=== PATIENT | female | born 1975 ===

== ENCOUNTER 2025-10-17 07:30 | Outpatient (AMB) | payer OTHER, MEDICARE, MEDICAID, SELFPAY ==
[2025-10-17 07:35] VITALS: BMI 25.2
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
== END 2025-10-17 08:08 | disposition home or self-care (01) ==
LOC: HO.HPHYS 07:31
PROVIDERS: PCP Internal Medicine; Visit Provider Physical Medicine & Rehabilitation
DX: M75.42 Impingement syndrome of left shoulder (principal); M54.2 Cervicalgia; M54.12 Radiculopathy, cervical region; V89.2XXA Person injured in unspecified motor-vehicle accident, traffic, initial encounter; M62.838 Other muscle spasm
CPT/HCPCS: 99204; G2211

== ENCOUNTER 2025-10-29 11:00 | Outpatient (REF) | payer OTHER, MEDICARE, MEDICAID, SELFPAY ==
--- OUTSIDE RECORDS SUMMARY | 2025-10-24 23:59 | XMS_ITS | Continuity of Care Document ---
Author Organization [facility] Address [address] [place] [address]- Support Name Relationship Address Phone DEAN MUÑOZ Personal Relationship Unknown Unavai labTIMMY Hensley Personal Relationship Unknown Unavai labdennis GAMBLE, TIMMY Personal Relationship Unknown Unavai labdennis GAMBLE, TIMMY Personal Relationship Unknown UnavaDANIELLE Campbell Personal Relationship Unknown Unavai labdennis GAMBLE, TIMMY Personal Relationship Unknown UnavaDANIELLE Campbell Personal Relationship Unknown Unavai labdennis STOCK, JACQUI Other Unknown Unavailable MAVIS, TIMMY Personal Relationship Unknown Unavai labdennis GAMBLE, TIMMY Personal Relationship Unknown Unavai labBILL HensleyIN Personal Relationship Unknown Unavai labdennis GAMBLE, TIMMY Personal Relationship Unknown Unavai lable JEREMY, LIVE unrelated friend Unknown Unav ailable MAVIS, TIMMY Personal Relationship Unknown Unavai labdennis GAMBLE, TIMMY Personal Relationship Unknown Unavai labTIMMY Hensley Personal Relationship Unknown Unava ilable MAVIS, TIMMY Personal Relationship Unknown Unavai labBILL HensleyIN former spouse Unknown Unavailable MAVIS, TIMMY Personal Relationship Unknown Unavai labdennis GAMBLE TIMMY Personal Relationship Unknown Unavai labdennis GAMBLE TIMMY Personal Relationship Unknown Unavai labdennis GAMBLE TIMMY Personal Relationship Unknown Unavai labdennis GAMBLE TIMMY Personal Relationship Unknown Unavai labdennis GAMBLE TIMMY Personal Relationship Unknown Unavai labdennis GAMBLE TIMMY Personal Relationship Unknown Unavai labdennis GAMBLE TIMMY Personal Relationship Unknown Unavai labdennis GAMBLE, TIMMY Personal Relationship Unknown Unavai lable MAVIS, DIMA child Unknown Unavailable MAVIS, TIMMY Personal Relationship Unknown Unavai labdennis GAMBLE, TIMMY Personal Relationship Unknown Unavai labdennis GAMBLE, TIMMY Personal Relationship Unknown Unavai labdennis GAMBLE TIMMY Personal Relationship Unknown Unavai labdennis GAMBLE, TIMMY Personal Relationship Unknown Unavai lable MAVIS, TIMMY Personal Relationship Unknown Unavai lable MAVIS, TIMMY Personal Relationship Unknown Unavai lable MAVIS, TIMMY M Personal Relationship Unknown Unava ilable CHOLO, DANIELLE Personal Relationship Unknown Unavai lable CHOLO, DANIELLE Personal Relationship Unknown Unavai lable MAVIS, TIMMY Personal Relationship Unknown Unavai lable MAVIS, TIMMY Personal Relationship Unknown Unavai lable MAVIS, TIMMY Personal Relationship Unknown Unavai lable MAVIS, TIMMY Personal Relationship Unknown Unavai lable MAVIS, TIMMY Personal Relationship Unknown Unavai lable MAVIS, TIMMY Personal Relationship Unknown Unavai lable MAVIS, TIMMY Personal Relationship Unknown Unavai lable MAVIS, TIMMY Personal Relationship Unknown Unavai lable MAVIS, TIMMY Personal Relationship Unknown Unavai lable MAVIS, TIMMY Personal Relationship Unknown Unavai lable MAVIS, TIMMY Personal Relationship Unknown Unavai lable MAVIS, TIMMY Personal Relationship Unknown Unavai lable MAVIS, TIMMY Personal Relationship Unknown Unavai lable MAVIS, TIMMY Personal Relationship Unknown Unavai lable MAVIS, TIMMY Personal Relationship Unknown Unavai lable MAVIS, TIMMY Personal Relationship Unknown Unavai lable CHOLO, DANIELLE Personal Relationship Unknown Unavai lable CHOLO, DANIELLE Personal Relationship Unknown Unavai lable MAVIS, TIMMY Personal Relationship Unknown Unavai lable MAVIS, TIMMY Personal Relationship Unknown Unavai lable MAVIS, TIMMY Personal Relationship Unknown Unavai lable MAVIS, TIMMY Personal Relationship Unknown Unavai lable Care Team Providers Care President [employer] Name Role Phone Satya VENTURA, Johnny Primary Care Physician Encounter [facility] Date(s): 09/24/25 - 10/24/[address] Attending Physician: Esmer Saleem Admitting Physician: Esmer Saleem Referring Physician: Esmer Saleem Encounter Type: Triage Allergies, Adverse Reactions, Alerts Substance Criticality Severity Reaction Reaction Severity Status ibuprofen Active sulfADIAZINE rash Active Medications escitalopram 20 mg oral tablet 1 tablet = 20 mg, By Mouth, Daily, # 30 tablet, 3 Refills, Maintenance, 10/10/24 4:48:00 PM EST, Tablet, [id number], Partial fill upon patient request if the prescription is for a schedule II opioid drug., 148, cm, 10/18/23 14:00:00 EST, Height, 59.5, kg, 08/01/23 14:27:00 EDT, Dry Weight Start Date: 10/10/24 Status: Ordered Medication Dispense Status: Completed Quantity: 30.0 Unit: tablet Total Allowed Fills: 4 Fills Dispensed: 0 hydrOXYzine hydrochloride 10 mg oral tablet 1 tablet = 10 mg, By Mouth, 3 times a day, PRN for anxiety, # 30 tablet, 1 Refills, Maintenance, 08/01/24 4:12:00 PM EDT, Tablet, [id number], Partial fill upon patient request if the prescription is for a schedule II opioid drug., 148, cm, 10/18/23 14:00:00 EST, Height, 59.5, kg, 08/01/23 14:27:00 EDT, Dry Weight Start Date: 08/01/24 Status: Ordered Medication Dispense Status: Completed Quantity: 30.0 Unit: tablet Total Allowed Fills: 2 Fills Dispensed: 0 meclizine 25 mg oral tablet 1 tablet = 25 mg, By Mouth, PRN for dizziness, # 30 tablet, 0 Refills, Maintenance, 05/30/24 5:09:00PM EDT, Tablet, Partial fill upon patient request if the prescription is for a schedule II opioid drug. Start Date: 05/30/24 Status: Ordered Medication Dispense Status: Completed Quantity: 30.0 Unit: tablet Total Allowed Fills: 1 Fills Dispensed: 0 ProAir HFA 90 mcg/inh inhalation aerosol with adapter 2, puffs, Inhalation, Every 4 hours, PRN, , cough or SOB, # 1 each, Refills 0, Tot. Refills 0, Maintenance, 12/22/18 4:38:35 PM EST, Aerosol, Route to Pharmacy Electronically, [id number], [facility] [id number] Start Date: 12/22/18 Stop Date: 01/21/19 Status: Ordered Medication Dispense Status: Completed Quantity: 1.0 Unit: each Total Allowed Fills: 1 Fills Dispensed: 0 Symbicort 80mcg/4.5mcg Inhaler 2, puffs, Inhalation, 2 times a day, # 10.2 Gm, Refills 0, Maintenance, 07/16/23 12:50:00 PM EDT, Aerosol Start Date: 07/16/23 Status: Ordered Medication Dispense Status: Completed Quantity: 10.2 Unit: g Total Allowed Fills: 1 Fills Dispensed: 0 Problem List Condition Confirmation Course Effective Dates Status Health [facility] Informant Post traumatic stress disorder (PTSD) Confirmed Active Major depressive disorder, recurrent Confirmed Active Social History Social History Type Response Smoking Status 10 or more cigarette s (1/2 pack or more)/day in last 30 days entered on: 04/24/25 Sex Sex Representation Female (finding) Patient Care team information Care Team Personnel Name: Sujey Pardo Position: [facility] Outreach Member Role: Lifetime Consulting Physician Name: Johnny Hernadez MD Position: [facility] Outreach Member Role: PCP Address: [address] [place] [address] Telecom: Care Team Related Persons Name: TIMMY GAMBLE Name: DIMA GAMBLE Name: JACQUI STOCK Name: LIVE LUNA Name: DEAN MUÑOZ Insurance Providers Guarantor name: DANIELLE EMMANUEL Health Plan Information #: 1 Payer: [employer]OUNT Payer Identifier: NA Member Number: NA Group Number: NA Subscriber Identifier: NA Relationship to Subscriber: self Coverage Type: MISCELLANEOUS/OTHER Coverage Verification Date: NA Telecom: NA Address:
--- NOTE | ~2025-10-29 | XR_ITS ---
EXAMINATION: XR SHOULDER, LEFT CLINICAL INFORMATION: M75.42 - Impingement syndrome of left shoulder COMPARISON: None available. TECHNIQUE: AP external rotation, Grashey, scapular Y, and axillary views of the left shoulder. FINDINGS: No fracture. Glenohumeral and acromioclavicular alignment is anatomic with normal joint space. No abnormal soft tissue calcifications. XR/XR shoulder LT min 2V IMPRESSION: No acute findings Electronically signed by: Tyrell Morillo MD 10/29/2025 02:12 PM EST
--- OUTSIDE RECORDS SUMMARY | 2025-10-29 10:00 | XMS_ITS | Encounter Summary ---
Author Organization [facility] Address [address] [place] [address] Care Team Providers Care Tape Folding Machine Operator Name Role Phone Kerry Varela MD Primary Care Provider [phone] Reason for Referral * Imaging (Routine) - Authorized Specialty Diagnoses / Procedures Referred By Shamikaac mena Referred To Contact Radiology Diagnoses Posterior tibial tendon tear, traumatic, left, sequela Procedures MR Ankle wo Contrast Left Rory Tamayo DPM [address] [address] Phone: tel: fax: [address] [address] Phone: tel: Referral ID Status Reason Start Date Expiration Date V isits Requested Visits Authorized [id number] Authorized 10/29/2025 10/29/2026 1 1 Reason for Visit * Reason Comments Ankle Pain Foot ankle pain Encounter Details Date Type Department Care Team (Late st Contact Info) Description 10/29/2025 10:00 AM EST Office Visit Orthopedic Surgery - [place] [address] [phone] Rory Tamayo DPM [address] [address] Left foot pain (Primary Dx); Posterior tibial tendon tear, traumatic, left, sequela; Lumbosacral radiculopathy; Arthritis of both feet Social History Tobacco Use Types Packs/Day Years Used Date Smoking Tobacco: Every Day Cigarettes 1 32.8 Started: 1992 Passive Smoke Exposure: Past Smokeless Tobacco: Never Alcohol Use Standard Drinks/Week Comments Yes 0 (1 standard drink = 0.6 oz pur e alcohol) Comments No Sex and Gender Information Value Date Recorded Sex Assigned at Not on file Legal Sex Female 10:47 PM EST Gender Identity Not on file Sexual Orientation Not on file documented as of this encounter Functional Status * Are you deaf or do you have serious difficulty hearing? Answer Date of Assessment Author No 03/23/2025 11:56 AM Janeth Flores RN * Are you blind or do you have serious difficulty seeing, even when wearing glasses? Answer Date of Assessment Author No 03/23/2025 11:56 AM Janeth Flores RN * Do you have serious difficulty walking or climbing stairs? Answer Date of Assessment Author No 03/23/2025 11:56 AM Janeth Flores RN * Do you have serious difficulty dressing or bathing? Answer Date of Assessment Author No 03/23/2025 11:56 AM Janeth Flores RN * Because of a physical, mental, or emotional condition, do you have serious difficulty doing errandsalone such as visiting the doctor? Answer Date of Assessment Author No 03/23/2025 11:56 AM Janeth Flores RN documented as of this encounter Mental Status * Because of a physical, mental, or emotional condition, do you have serious difficulty concentrating, remembering, or making decisions? (5 years old or older) Answer Entry Date Author No 03/23/2025 11:56 AM Janeth Flores RN documented in this encounter Ordered Prescriptions Prescription Sig Dispense Quantity Refills Last Filled Start Date End Date gabapentin (NEURONTIN) 300 mg capsule Take 1 capsule (300 mg total) by mouth 3 (three) times a day. 270 each 3 10/29/2025 documented in this encounter Progress Notes * Rory Tamayo DPM - 10/29/2025 10:00 AM EST Referring MD: No ref. provider found Last PCP visit: 09/05/2025 IDENTIFIER: Mitchell is a 49 y.o. year old female who presents for consultation. CC: Left foot pain HPI: 49-year-old female presents office with left ankle pain. Patient notes that she had an injury 1 year ago and has had pain and swelling to the medial aspect since then. Patient has tried topical analgesics with no help or resolved. Patient notes that she continues to have pain anytime she steps in the morning. Patient denies any recent back problems. Patient notes that she wore a cam boot after her original injury which felt too tight and was painful. Patient is here for evaluation treatment 10/29/2025: 49-year-old female returns office for left foot and ankle pain. Patient continues to point to the medial aspect. Patient notes that the ASO was too uncomfortable and she would not be ableto use it. Patient has she is unable to take anti-inflammatory such as NSAIDs. Patient has been using Tylenol with minimal relief. Patient notes that when she is not weightbearing she does not have pain but as soon as she puts her foot down she has severe pain. ROS: GENERAL: Pt denies nausea, fever, vomiting, chills, or shortness of breath. Pt in NAD. CARDIOLOGY: pt denies chest pain, palpitations LUNGS: pt denies shortness of breath MUSCULOSKELETAL: See HPI, otherwise no joint pain or swelling, back pain, or muscle pain. SKIN: see HPI, otherwise no lesions, rash or itching NEURO: No persistent headache, weakness or numbness The remainder of the review of systems is noncontributory PAST MEDICAL HISTORY: Problem List[1] SOCIAL HISTORY: Social History Tobacco Use Smoking status: Every Day Current packs/day: 1.00 Average packs/day: 1 pack/day for 32.8 years (32.8 ttl pk-yrs) Types: Cigarettes Start date: 1992 Passive exposure: Past Smokeless tobacco: Never Substance Use Topics Alcohol use: Yes ACTIVE MEDICATIONS: Medications Taking[2] ALLERGIES: Ibuprofen, Latex, and Sulfa (sulfonamide antibiotics) PHYSICAL EXAM: There were no vitals taken for this visit. PODIATRIC EXAMINATION: GENERAL: Patient appears well nourished, with NAD. VASCULAR: Dorsalis pedis pulses are 2/4 bilaterally and Posterior tibial pulses are 2/4 bilaterally. Capillary filling time within normal limits the digits. No pallor on elevation or rubor on dependency. Positive hair growth. No varicosities. Denies rest pain or claudication pain. NEUROLOGICAL: Sharp/dull sensation intact, protective sensation intact on [place] ORTHOPEDIC: Good muscle strength 5/5 of all flexors and extensors. Dorsi flexion of ankle ,10 degrees, plantar flexion WNL. No muscle atrophy. Continue pain along the posterior tibial tendon to the left ankle with swelling throughout the area. Continued difficulty on single heel raise. Flexible flatfoot with notable drop of the navicular on stance. DERMATOLOGICAL:.No masses or skin lesions noted. Normal skin temperature, normal skin turgor. BIOMECHANICS: STJ ROM wnl, MTJ ROM wnl, 1st MPJ ROM wnl. IMAGING: Increased angular deformity. Notable drop in the talar neck. Incongruity with Meary's angle. Spurring through the dorsum of the midtarsal joint at the talonavicular joint. No fractures or dislocation IMPRESSION: 1. Left foot pain 2. Posterior tibial tendon tear, traumatic, left, sequela 3. Lumbosacral radiculopathy 4. Arthritis of both feet PLAN: Pt was seen and examined, history reviewed. Patient with continued symptoms of arthritic pain in the pedal joints. Patient showed good understanding of etiology of arthritis. Patient is aware that conservative options include padding, over thecounter products, orthotics, and shoes. Patient aware that they are other treatments available suchas oral anti- inflammatories, injections, and steroid dose packs. Patient understands that these measures are conservative measures to help handle the osteoarthritic flares. Patient's posterior tibial tendinitis has not been resolving at all. Patient continues to have severe tenderness. Patient was sent for MRI to evaluate possible tear of the posterior tibial tendon Patient was educated that she is having some pain outside of proportion. Patient has a history of lower back disc degeneration. Patient was placed on gabapentin 300 mg 3 times a day for an evaluationof whether this would help with her pain. Patient will come back in 3 weeks for evaluation Rory Tamayo DPM [1] Patient Active Problem List Diagnosis Alcohol abuse Asthma Srinivasan's palsy Constipation Anxiety state HSV-2 seropositive IBS (irritable bowel syndrome) Esophageal reflux Lumbar degenerative disc disease Palpitations Panic disorder with agoraphobia Thrombocytosis Osteopenia Mild hyperlipidemia [2] No outpatient medications have been marked as taking for the 10/29/25 encounter (Office Visit) withRory Tamayo DPM. documented in this encounter Plan of Treatment Upcoming Encounters Date Type Department Care Team (Late st Contact Info) Description 11/19/2025 10:45 AM EST Office Visit Orthopedic Surgery - [place] [address] [phone] Rory Tamayo DPM [address] [address] Scheduled Orders Name Type Priority Associated Diagnoses Orde r Schedule MR Ankle wo Contrast Left Imaging Routine Posterior tibial tendon tear, traumatic, left, sequela Expected: 10/29/2025, Expires: 10/29/2026 documented as of this encounter Visit Diagnoses Diagnosis Left foot pain- Primary Pain in soft tissues of limb Posterior tibial tendon tear, traumatic, left, sequela Lumbosacral radiculopathy Thoracic or lumbosacral neuritis or radiculitis, unspecified Arthritis of both feet documented in this encounter Care Teams Tape Folding Machine Operator Relationship Specialty Start Date End Date Kerry Varela MD [address] [place] [address] PCP - General Internal Medicine 06/01/25 documented as of this encounter
--- OUTSIDE RECORDS SUMMARY | 2025-10-29 13:54 | XMS_ITS | Clinical Summary ---
Author Organization [facility] Prior to 04/07[facility]25 Address [address] [place] [address] Care Team Providers Care Signs Sales Representative Name Role Phone Neo Soliz MD Primary Care Provider [phone] Allergies Active Allergy Reactions Criticality Noted Date Comments Sulfa Antibiotics 07/17/2021 Medications Medication Sig Dispensed Refills Start Date End Date Status famotidine (PEPCID) 20 MG tablet Take 1 tablet (20 mg total) by mouth 2 (two) times a day. 0 Active cetirizine (ZyrTEC) 10 MG tablet Take 1 tablet (10 mg total) by mouth daily. 0 Active fluticasone (FLOVENT HFA) 44 MCG/ACT inhaler Inhale 1 puff into the lungs 2 (two) times a day. 0 Active albuterol 108 (90 Base) MCG/ACT inhaler Inhale 2 puffs into the lungs every 6 (six) hours as needed for wheezing. 0 Active Cholecalciferol (Vitamin D) 50 MCG (2000 UT) tablet Take 2,000 Units by mouth daily. 0 Active propranolol (INDERAL LA) 60 MG 24 hr capsule Take 30 mg by mouth daily. 0 Active capsaicin (ZOSTRIX) 0.025 % cream Apply topically 2 (two) times a day. 0 Active zolpidem (AMBIEN) 5 MG tablet Take 1 tablet (5 mg total) by mouth every night at bedtime as needed for sleep. 0 Active PARoxetine (PAXIL) 40 MG tablet Take 30 mg by mouth every morning. 0 Active Budesonide-Formoterol Fumarate (SYMBICORT IN) Inhale into the lungs. 0 Active Active Problems No known active problems Social History Tobacco Use Types Packs/Day Years Used Date Smoking Tobacco: Every Day Cigarettes Smokeless Tobacco: Never Alcohol Use Standard Drinks/Week Comments Yes 0 (1 standard drink = 0.6 oz pur e alcohol) Sex and Gender Information Value Date Recorded Sex Assigned at Not on file Gender Identity Not on file Sexual Orientation Not on file Job Start Date Occupation Industry Not on file Not on file Not on file Last Filed Vital Signs Vital Sign Reading Time Taken Comments Blood Pressure 115/48 01/27/2024 10:04 AM EDT Pulse 90 01/27/2024 10:04 AM EDT Temperature 36.7 C (98 F) 01/27/2024 10:04 AM EDT Respiratory Rate - - Oxygen Saturation 100% 01/27/2024 10:04 AM EDT Inhaled Oxygen Concentration - - Weight 59.9 kg (132 lb) 01/27/2024 10:04 AM EDT Height 147.3 cm (4' 10 ) 01/27/2024 10:04 AM EDT Body Mass Index 27.59 01/27/2024 10:04 AM EDT Plan of Treatment Health Maintenance Due Date Last Done Comments Hepatitis C Screening 1977 COVID-19 Vaccine (#1) 06/25/1978 Depression Screening 1989 BMI Counseling 1995 Preventative Health Evaluation 1995 Tobacco Cessation Counseling 1995 Cervical Cancer Screening (Pap Smear) 1998 Pneumococcal Vaccine (2 of 2 - PCV) 02/07/2016 02/06/2015 DTap / Tdap / Td (2 - Td or Tdap) 06/16/2022 06/16/2012 Colon Cancer Screening (Colonoscopy) 2022 Influenza Vaccine (#1) 2025 5, 09/26/2013, 11/17/2012, Additional history exists Hepatitis B Vaccines Completed 12/13/2008, 07/13/2008, 06/12/2008 RSV Ped < 20 months Aged Out No longe r eligible based on patient's age to complete this topic Care Teams Signs Sales Representative Relationship Specialty Start Date End Date Neo Soilz MD [address] [place] [address] PCP - General Internal Medicine 07/17/21
--- OUTSIDE RECORDS SUMMARY | 2025-10-29 13:54 | XMS_ITS | Encounter Summary ---
Author Organization [facility] Address [address] [place] [address] Care Team Providers Care Dry End Tester Name Role Phone Kerry Varela MD Primary Care Provider [phone] Encounter Details Date Type Department Care Team (Late st Contact Info) Description 09/06/2025 Results Follow-Up [facility] [place] [address] [place] [phone] [facility] [address] [facility] [place] [facility] Social History Tobacco Use Types Packs/Day Years [...] Janeth Flores RN documented in this encounter Plan of Treatment Upcoming Encounters Date Type Department Care Team (Late st Contact Info) Description 11/19/2025 10:45 AM EST Office Visit Orthopedic Surgery - [place] [address] [phone] Rory Tamayo DPM [address] [address] documented as of this encounter Visit Diagnoses Not on filedocumented in this encounter Care Teams Dry End Tester Relationship Specialty Start Date End Date Kerry Varela MD [address] [place] [address] PCP - General Internal Medicine 06/01/25 documented as of this encounter
--- OUTSIDE RECORDS SUMMARY | 2025-10-29 13:55 | XMS_ITS | Encounter Summary ---
Author Organization [facility] Address [address] [place] [address] Care Team Providers Care Wool Buyer Name Role Phone Kerry Varela MD Primary Care Provider [phone] Encounter Details Date Type Department Care Team ([facility] st Contact Info) Description 09/26/2025 Results Follow-Up [facility] [address] [facility] [address] [place] [phone] Aubrie Ramos MD [address] [place] [address] [place] [phone] Social History Tobacco Use Types Packs/Day Years [...] Janeth Flores RN documented in this encounter Progress Notes * Aubrie Ramos MD - 09/26/2025 4:26 PM EST [employer] message sent to the patient regarding result. See below. documented in this encounter Plan of Treatment Upcoming Encounters Date Type Department Care Team (Late st Contact Info) Description 11/19/2025 10:45 AM EST Office Visit Orthopedic Surgery - [place] [address] [phone] Rory Tamayo, DPM [address] [address] documented as of this encounter Visit Diagnoses Not on filedocumented in this encounter Care Teams Wool Buyer Relationship Specialty Start Date End Date Kerry Varela MD [address] [place] [address] PCP - General Internal Medicine 06/01/25 documented as of this encounter
--- OUTSIDE RECORDS SUMMARY | 2025-10-29 13:55 | XMS_ITS | Clinical Summary ---
Author Organization [facility] [address] [facility] Address [address] [facility] [place] [address] Phone Care Team Providers Care Accounting Instructor Name Role Phone Kerry Varela MD Primary Care Provider [phone] Allergies Active Allergy Reactions Criticality Noted Date Comments Ibuprofen Hives Medium 08/03/2023 Latex Rash 03/19/2023 Sulfa (Sulfonamide Antibiotics) Rash Low 02/07 Medications cetirizine (ZyrTEC) 10 mg tablet Take 1 tablet (10 mg total) by mouth 1 (one) time each day. 3 Active cholecalciferol (VITAMIN D-3) 50 mcg (2,000 unit) capsule Take 1 capsule (2,000 Units total) by mouth 1 (one) time each day. 4 Active escitalopram (LEXAPRO) 20 mg tablet Take 1 tablet (20 mg total) by mouth 1 (one) time each day. 4 Active meclizine (ANTIVERT) 25 mg tablet Take 1 tablet (25 mg total) by mouth. 4 Active albuterol 2.5 mg /3 mL (0.083 %) nebulizer solution Take 3 mL (2.5 mg total) by nebulization if needed. 4 Active fluticasone furoate-vilante roL (BREO ELLIPTA) 200-25 mcg/dose inhaler Inhale 1 puff by mouth 1 (one) time each day. 1 each 5 5 08/10/20 26 Active propranolol LA (INDERAL LA) 60 mg 24 hr capsule TAKE 1 CAPSULE (60 MG TOTAL) BY MOUTH DAILY DO NOT CRUSH, CHEW, OR SPIT 90 capsule 1 5 Active Additional Information Patient not taking.Reported on 09/05/2025 acetaminophen (Tylenol 8 Hour) 650 mg 8 hr tablet Take 1 tablet (650 mg total) by mouth every 8 (eight) hours if needed for mild pain. Do not crush, chew, or split. 90 tablet 5 11/07/20 25 Active gabapentin (NEURONTIN) 300 mg capsule Take 1 capsule (300 mg total) by mouth 3 (three) times a day. 270 each 3 5 10/29/20 26 Active Active Problems Problem Noted Date Diagnosed Date Mild hyperlipidemia 07/27/2025 Thrombocytosis 01/11/2025 Assessment & Plan (01/11/2025 5:06 PM EST): We will monitor CBC. If platelet levels more than 800, will refer her back to hematology. Orders: CBC and differential; Future Osteopenia 01/11/2025 Assessment & Plan (01/11/2025 5:06 PM EST): Continue vitamin D. Lumbar degenerative disc disease 12/16/2023 Assessment & Plan (01/11/2025 5:06 PM EST): Lower back pain, she followed up with rheumatology and physiatry previously. For now she will use acetaminophen as needed for pain. 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 Upper GI endoscopy,duodenal biopsies, colonoscopy performed 09/16/2009: Increased duodenal lymphocytes. 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 She is been switched to Breo Ellipta. Esophageal reflux 09/17/2007 Overview (10/14/2024): With nausea and vomiting. Normal upper GI endoscopy, 09/16/2009. Duodenal biopsies obtained: Constipation 08/23/2006 Overview (10/14/2024): IMO update Anxiety state 08/23/2006 Palpitations 08/23/2006 Overview (01/11/2025): Last Assessment & Plan: Etiology of her palpitations is unclear. She has had a reassuring Holter monitors in the past. She had a normal 30-day Holter from 2019. Echocardiogram from 2019 is normal. I am going to update laboratories to include a BMP and TSH. I will also update a CBC. I am going to have her wear a 24-hour Holter monitor and transition this to a 30-day monitor if she does not have any symptoms while wearing it. Encounters Date Type Department Care Team Description 10/29/2025 10:00 AM EST Office Visit Orthopedic Surgery [facility] [address] [phone] Rory Tamayo DPM Left foot pain (Primary Dx); Posterior tibial tendon tear, traumatic, left, sequela; Lumbosacral radiculopathy; Arthritis of both feet 10/16/2025 Telephone Orthopedic Surgery [facility] [address] [phone] Rory Tamayo DPM 10/08/2025 10:30 AM EST Consult Orthopedic Surgery [facility] [address] [phone] Rory Tamayo DPM Left foot pain (Primary Dx); Arthritis of both feet; Posterior tibial tendinitis of left leg 09/26/2025 Results Follow-Up [facility] - [facility] 154 300 [facility] 154 [place] [address] Aubrie Ramos MD 09/06/2025 Results Follow-Up Internal Medicine - [address] [place] [phone] Kerry Varela MD 09/05/2025 2:20 PM EDT Lab Draw Station - [address] Left ankle pain, unspecified chronicity; Family history of diabetes mellitus (DM); Screening for deficiency anemia; Hyperlipidemia, unspecified hyperlipidemia type 09/05/2025 1:30 PM EDT Office Visit Internal Medicine - [address] [place] [phone] Kerry Varela MD Intermittent asthma without complication, unspecified asthma severity (Primary Dx); Thrombocytosis; Anxiety state; Palpitations; Panic disorder with agoraphobia; Mild hyperlipidemia; Screening for deficiency anemia; Family history of diabetes mellitus (DM); Hyperlipidemia, unspecified hyperlipidemia type; Polyarthralgia; Left ankle pain, unspecified chronicity; Alcohol dependence with unspecified alcohol-induced disorder (CMS/HCC V24, CMS/HCC V28); Weakness of both legs; Current smoker 09/05/2025 Telephone Internal Medicine - [address] [phone] Kerry Varela MD 08/23/2025 Telephone [facility] [address] [place] [address] Aubrie Ramos MD 08/10/2025 1:15 PM EDT Office Visit Internal Medicine - [address] [place] [phone] Karyna Marte DO Rash (Primary Dx); Intermittent asthma without complication, unspecified asthma severity 08/08/2025 Telephone Internal Medicine - [address] [place] [phone] Kerry Varela MD 08/05/2025 7:00 AM EDT Ancillary Procedure [facility] - [facility] [address] [place] [address] Palpitations 08/01/2025 Telephone [facility] - [facility] [address] [facility] [address] [place] [address] Aubrie Ramos MD from Last 3 Months Immunizations Immunization Administration Dates Next Due H1N1 Inj Preservative Free 10/11/2009 Hepatitis B (Pzvzaty-C-Kgzde , Recombivax HB-Adult) 19yo and older 12/13/2008,07/13/2008,06/12/2008 Influenza trivalent, 0.5mL, preservative free (Fluarix; FluLaval; Fluzone) ages 6mo and older (Afluria) 3 years and older 08/28/2015,09/26/2013,11/17/2012,12/29,10/10/2010,10/11/2009,10/18/2008 ,10/05/2007 PPD Test 09/29/2010 Pneumococcal polysaccharide 23 valent (Pneumovax 23) 2yo and older 02/06/2015 Td Tetanus diptheria (Tdvax) 7yo and older 12/31/2022,05/05/2009,08/23/2006 Tdap Tetanus diptheria acell ular pertussis (Boostrix; Adacel) 7yo and older 04/09/2018,06/16/2012 Surgical History Surgery Date Site/Laterality Comments TUBAL LIGATION 1997 PROCEDURE: HISTORICAL TUBAL LIGATION OTHER SURGICAL HISTORY 1997 PROCEDURE: VA OPEN TX METACARPAL FRACTURE SINGLE EA BONE; COMMENT: Left COLONOSCOPY 09/16/2009 PROCEDURE: HISTORICAL COLONOSCOPY; COMMENT: Normal ESOPHAGOGASTRODUODENOSCOPY 09/16/2009 PROCEDURE: VA EGD TRANSORAL BIOPSY SINGLE/MULTIPLE; COMMENT: duodenal bx: Increased lymphocytes. UPPER GASTROINTESTINAL ENDOSCOPY 05/12/2016 PROCEDURE: VA UPPER GI ENDOSCOPY PERFORMED; COMMENT: normal, not on PPI rx. 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 DX:Srinivasan's palsy Esophageal reflux 09/17/2007 DX:Esophageal reflux; COMMENT: With nausea and vomiting IBS (irritable bowel syndrome) 09/11/2009 D X:IBS (irritable bowel syndrome) Hemorrhage of gastrointestin al tract, unspecified 09/16/2009 DX:Hemorrhage of gastrointes tinal tract, unspecified Tension headache 03/15/2018 DX:Tension head ache Thrombocytosis 01/11/2025 Family History Medical History Relation Name Comments Breast cancer Aunt 1 paternal aunt Glaucoma Aunt 2 Thyroid disease Aunt 3 paternal aun t Colon cancer Aunt 4 paternal aunt Diabetes Father Heart attack Father Hyperlipidemia Father Hypertension Father Other: Murder Maternal Grandfather Heart attack Maternal Grandmother Hypertension Mother Other: Cerebral Hemmorhage Mother Blindness Other cousin Breast cancer Other Heart attack Paternal Grandmother murder Son Cataracts Neg Hx Macular degeneration Neg Hx Ovarian cancer Neg Hx Strabismus Neg Hx Relation Name Status Comments Aunt 1 Aunt 2 Aunt 3 Aunt 4 Father Alive Maternal Grandfather Maternal Grandmother Mother Alive Other Paternal Grandmother Son Social History Tobacco Use Types Packs/Day Years Used Date Smoking Tobacco: Every Day Cigarettes 1 32.8 Started: 1992 Passive Smoke Exposure: Past Smokeless Tobacco: Never Tobacco Cessation:Ready to Q uit: No; Counseling Given: No Alcohol Use Standard Drinks/Week Comments Yes 0 (1 standard drink = 0.6 oz pur e alcohol) Comments No Sex and Gender Information Value Date Recorded Sex Assigned at Not on file Legal Sex Female 10:47 PM EST Gender Identity Not on file Sexual Orientation Not on file Last Filed Vital Signs Vital Sign Reading Time Taken Comments Blood Pressure 119/75 09/05/2025 1:28 PM EDT aut o Pulse 72 09/05/2025 1:28 PM EDT Temperature 37 C (98.6 F) 03/23/2025 2:23 PM EDT Respiratory Rate 16 04/18/2025 9:24 AM EDT Oxygen Saturation 99% 07/27/2025 10:56 AM EDT Inhaled Oxygen Concentration - - Weight 57.2 kg (126 lb 1.6 oz) 09/05/2025 1:28 P M EDT Height 147.1 cm (4' 9.9 ) 09/05/2025 1:28 PM EDT Body Mass Index 26.45 09/05/2025 1:28 PM EDT Plan of Treatment Upcoming Encounters Date Type Department Care Team (Late st Contact Info) Description 11/19/2025 10:45 AM EST Office Visit Orthopedic Surgery - [place] [address] [phone] Rory Tamayo, DPRandal [address] [address] Health Maintenance Due Date Last Done Comments Hepatitis A Vaccines (1 of 2 - Risk 2-dose series) 1996 Pneumococcal Vaccine: Pediatrics (0 to 5 Years) and At-Risk Patients (6 to 49 Years) (2 of 2 - PCV) 02/07/2016 02/06/2015 HIV Screening 10/11/2022 Hepatitis C Screening 10/11/2022 Medicare Annual Wellness Visit 10/11/2022 Social Influencers of Health Screening 10/11/2022 Cervical Cancer Screening: Pap Smear 01/02/2024 01/02/2021 Depression Screening 11/08/2024 COVID-19 Vaccine ( season) 2025 Influenza Vaccine (#1) 2025 5, 09/26/2013, 11/17/2012, Additional history exists Breast Cancer Screening 01/24/2026 01/25/2024 Cholesterol Screening (Lipid Panel) 09/05/2030 09/05/2025, 02/14/2025 DTaP,Tdap,and Td Vaccines (6 - Td or Tdap) 12/31/2032 12/31/2022, 04/09/2018, 06/16/2012, Additional history exists Colorectal Cancer Screening: Colonoscopy 03/26/2033 03/26/2023, 03/26/2023 RSV Immunization Adult Patients (1 - 1-dose 75+ series) 2052 Hepatitis B Vaccines Completed 12/13/2008, 07/13/2008, 06/12/2008 HIB Vaccines Aged Out No longer eligi ble based on patient's age to complete this topic HPV Vaccines Aged Out No longer eligi ble based on patient's age to complete this topic IPV Vaccines Aged Out No longer eligi ble based on patient's age to complete this topic MMR Vaccines Aged Out No longer eligi ble based on patient's age to complete this topic Meningococcal ACWY Vaccine Aged Out N o longer eligible based on patient's age to complete this topic Meningococcal B Vaccine Aged Out No l onger eligible based on patient's age to complete this topic RSV Immunization Patients Under 20 months Aged Out No longer eligible based on patient's age to complete this topic Varicella Vaccines Aged Out No longer eligible based on patient's age to complete this topic Procedures Procedure Name Priority Date/Time Associated Diagnosis Comments CBC WITH AUTO DIFFERENTIAL Routine 09/05/2025 2:26 PM EDT Screening for deficiency anemia LIPID PANEL WITH REFLEX TO DIRECT LDL Routine 09/05/2025 2:26 PM EDT Family history of diabetes mellitus (DM) Hyperlipidemia, unspecified hyperlipidemia type COMPREHENSIVE METABOLIC PANEL Routine 09/05/2025 2:26 PM EDT Family history of diabetes mellitus (DM) CBC AND DIFFERENTIAL Routine 09/05/2025 2:26 PM EDT Screening for deficiency anemia HEMOGLOBIN A1C Routine 09/05/2025 2:26 PM EDT Family history of diabetes mellitus (DM) URIC ACID Routine 09/05/2025 2:26 PM EDT Left ankle pain, unspecified chronicity CARDIAC EVENT MONITOR W/ CONNECTION Routine 08/06/2025 8:51 AM EDT Palpitations SCREENING MAMMOGRAPHY BI 2-VIEW BREAST INC CAD Routine 01/25/2024 6:34 PM EDT Encounter for screening mammogram for malignant neoplasm of breast EXTERNAL COLONOSCOPY REPORT Routine 03/26/2023 7:22 AM EDT PAP SMEAR Routine 01/02/2021 from Last 3 Months or Most Recently Relevant to Health Maintenance Results * (ABNORMAL) Lipid panel with reflex to direct LDL (09/05/2025 2:26 PM EDT) Cholesterol 206(H) 0 - 200 mg/dL LAB CHEMISTRY METHOD 09/05/2025 9:24 PM EDT [facility] Triglycerides 65 0 - 150 mg/dL LAB CHEMISTRY METHOD 09/05/2025 9:24 PM EDT [facility] HDL 91 >=40 mg/dL LAB CHEMISTRY METHOD 09/05/2025 9:24 PM EDT [facility] LDL Calculated 102(H) 0 - 100 mg/dL LAB CHEMISTRY METHOD 09/05/2025 9:24 PM EDT [facility] Comment:Estimated LDL Calcul ated using equation: Total cholesterol - HDL cholesterol - (Triglycerides/5) VLDL Cholesterol Harshad 13 mg/dL LAB CHEMISTRY METHOD 09/05/2025 9:24 PM EDT [facility] Non HDL Chol. (LDL+VLDL) 115 <145 mg/dL LAB CHEMISTRY METHOD 09/05/2025 9:24 PM EDT [facility] Chol/HDL Ratio 2.3 0.0 - 4.4 LAB CHEMISTRY METHOD 09/05/2025 9:24 PM EDT [facility] Blood Venous blood specimen / Unknown Venipuncture / Unknown 09/05/2025 2:26 PM EDT 09/05/2025 2:26 PM EDT us Kerry Varela MD LAB BLOOD ORDERABLES Final Res ult [facility] [address] [place] [address], [place] [phone] * (ABNORMAL) CBC auto differential (09/05/2025 2:26 PM EDT) Pathologist [facility] WBC 9.4 4.8 - 10.8 K/mcL LAB HEMETOLOGY METHOD 09/05/2025 6:21 PM [facility] RBC 4.50 3.80 - 4.80 M/mcL LAB HEMETOLOGY METHOD 09/05/2025 6:21 PM [facility] Hemoglobin 13.3 11.5 - 16.0 g/dL LAB HEMETOLOGY METHOD 09/05/2025 6:21 PM [facility] Hematocrit 41.7 35.0 - 47.0 % LAB HEMETOLOGY METHOD 09/05/2025 6:21 PM [facility] MCV 92.9 79.0 - 98.0 FL LAB HEMETOLOGY METHOD 09/05/2025 6:21 PM [facility] MCH 29.6 27.0 - 32.0 pcg LAB HEMETOLOGY METHOD 09/05/2025 6:21 PM [facility] MCHC 31.9(L) 32.0 - 37.0 g/dL LAB HEMETOLOGY METHOD 09/05/2025 6:21 PM [facility] RDW 13.6 11.0 - 15.0 % LAB HEMETOLOGY METHOD 09/05/2025 6:21 PM [facility] Platelets 447(H) 130 - 400 K/[facility] LAB HEMETOLOGY METHOD 09/05/2025 6:21 PM [facility] MPV 11.8(H) 7.0 - 11.0 FL LAB HEMETOLOGY METHOD 09/05/2025 6:21 PM [facility] NRBC 0.0 <1.0 % LAB HEMETOLOGY METHOD 09/05/2025 6:21 PM [facility] NRBC Absolute 0.00 <0.10 K/[facility] LAB HEMETOLOGY METHOD 09/05/2025 6:21 PM [facility] Neutrophils Relative 53.4 % LAB HEMETOLOGY METHOD 09/05/2025 6:21 PM [facility] Lymphocytes Relative 34.6 % LAB HEMETOLOGY METHOD 09/05/2025 6:21 PM [facility] Monocytes Relative 8.0 % LAB HEMETOLOGY METHOD 09/05/2025 6:21 PM [facility] Eosinophils Relative 2.5 % LAB HEMETOLOGY METHOD 09/05/2025 6:21 PM [facility] Basophils Relative 1.2 % LAB HEMETOLOGY METHOD 09/05/2025 6:21 PM [facility] Immature Granulocytes Relative 0.3 % LAB HEMETOLOGY METHOD 09/05/2025 6:21 PM [facility] Neutrophils Absolute 5.03 1.50 - 7.00 K/mcL LAB HEMETOLOGY METHOD 09/05/2025 6:21 PM [facility] Lymphocytes Absolute 3.26 1.00 - 5.00 K/mcL LAB HEMETOLOGY METHOD 09/05/2025 6:21 PM [facility] Monocytes Absolute 0.75 0.20 - 1.00 K/mcL LAB HEMETOLOGY METHOD 09/05/2025 6:21 PM [facility] Eosinophils Absolute 0.24 0.00 - 0.50 K/mcL LAB HEMETOLOGY METHOD 09/05/2025 6:21 PM [facility] Basophils Absolute 0.11 0.00 - 0.20 K/mcL LAB HEMETOLOGY METHOD 09/05/2025 6:21 PM [facility] Immature Granulocytes Absolute 0.03 0.00 - 0.03 K/mcL LAB HEMETOLOGY METHOD 09/05/2025 6:21 PM [facility] Blood Venous blood specimen / Unknown Venipuncture / Unknown 09/05/2025 2:26 PM EDT 09/05/2025 2:26 PM EDT us Kerry Varela MD LAB BLOOD ORDERABLES Final Res ult [facility] [address] [place] [address], [place] [phone] * Uric acid (09/05/2025 2:26 PM EDT) [facility] Uric Acid 4.5 3.1 - 7.8 mg/dL LAB CHEMISTRY METHOD 09/05/2025 9:20 PM EDT [facility] Blood Venous blood specimen / Unknown Venipuncture / Unknown 09/05/2025 2:26 PM EDT 09/05/2025 2:26 PM EDT us Kerry Varela MD LAB BLOOD ORDERABLES Final Res ult Performing Organization Address [facility]/ZIP Co de Phone Number [facility] [address] [place] [address], [place] [phone] * Hemoglobin A1c (09/05/2025 2:26 PM EDT) [facility] Hemoglobin A1C 5.4 <6.5 % LAB CHEMISTRY METHOD 09/05/2025 9:25 PM EDT [facility] Mean Bld Glu Estim. 108 mg/dL LAB CHEMISTRY METHOD 09/05/2025 9:25 PM EDT [facility] Blood Venous blood specimen / Unknown Venipuncture / Unknown 09/05/2025 2:26 PM EDT 09/05/2025 2:26 PM EDT us Kerry Varela MD LAB BLOOD ORDERABLES Final Res ult Performing Organization Address City/[facility]/ZIP Co de Phone Number [facility] [address] [place] [address], [place] [phone] * Comprehensive metabolic panel (09/05/2025 2:26 PM EDT) Sodium 137 133 - 145 mmol/L LAB CHEMISTRY METHOD 09/05/2025 9:20 PM [facility] Potassium 4.3 3.5 - 5.5 mmol/L LAB CHEMISTRY METHOD 09/05/2025 9:20 PM [facility] Chloride 107 96 - 110 mmol/L LAB CHEMISTRY METHOD 09/05/2025 9:20 PM [facility] CO2 23 21 - 32 mmol/L LAB CHEMISTRY METHOD 09/05/2025 9:20 PM [facility] Anion Gap 7 3 - 11 LAB CHEMISTRY METHOD 09/05/2025 9:20 PM [facility] Glucose 82 70 - 100 mg/dL LAB CHEMISTRY METHOD 09/05/2025 9:20 PM [facility] BUN 9 5 - 25 mg/dL LAB CHEMISTRY METHOD 09/05/2025 9:20 PM [facility] Creatinine 0.52 0.50 - 1.10 mg/dL LAB CHEMISTRY METHOD 09/05/2025 9:20 PM [facility] eGFR 115 >=60 mL/min/1. 73m2 LAB CHEMISTRY METHOD 09/05/2025 9:20 PM [facility] Comment:Calculation based on the Chronic Kidney Disease Epidemiology Collaboration (CKD-EPI) equation refit without adjustment for race. BUN/Creatinine Ratio 17.3 LAB CHEMISTRY METHOD 09/05/2025 9:20 PM [facility] Calcium 9.3 8.5 - 10.5 mg/dL LAB CHEMISTRY METHOD 09/05/2025 9:20 PM [facility] AST (SGOT) 29 10 - 42 unit/L LAB CHEMISTRY METHOD 09/05/2025 9:20 PM [facility] ALT (SGPT) 41 10 - 60 unit/L LAB CHEMISTRY METHOD 09/05/2025 9:20 PM EDT [facility] Alkaline Phosphatase 85 42 - 121 unit/L LAB CHEMISTRY METHOD 09/05/2025 9:20 PM EDT [facility] Total Protein 7.5 6.0 - 8.0 g/dL LAB CHEMISTRY METHOD 09/05/2025 9:20 PM EDT [facility] Albumin 4.1 3.2 - 5.0 g/dL LAB CHEMISTRY METHOD 09/05/2025 9:20 PM EDT [facility] Total Bilirubin 0.9 0.0 - 1.4 mg/dL LAB CHEMISTRY METHOD 09/05/2025 9:20 PM EDT [facility] Blood Venous blood specimen / Unknown Venipuncture / Unknown 09/05/2025 2:26 PM EDT 09/05/2025 2:26 PM EDT us Kerry Varela MD LAB BLOOD ORDERABLES Final Res ult [facility] [address] [place] [address], * CARDIAC EVENT MONITOR W/ CONNECTION (08/06/2025 8:51 AM EDT) Anatomical Region Laterality Modality Cardiac Diagnost ic Impressions 08/31/2025 1:08 PM EDT 1. Patient triggered symptomatic events correlated to low-grade sinus tachycardia. Narrative 08/31/2025 1:08 PM EDT [facility] DEPARTMENT [address] [place] [id number] TEL: FAX: TYPE OF TEST: 14 day Looping monitor. Event triggered monitor only. DATES OF MONITORIN08/05/2025- 08/19/2025 REQUESTING PHYSICIAN: Aubrie Ramos MD PRIMARY CARE PROVIDER: Kerry Varela MD INDICATION: Palpitations Findings: 1. The predominant rhythm was sinus. 2. There were 2 patient triggered symptomatic events. They correlated to sinus tachycardia at 103 bpm and sinus tachycardia at 115 bpm. us Aubrie Ramos MD CV CARDIAC SERVICES PROCEDURES Final Result * SCREENING MAMMOGRAPHY BI 2-VIEW BREAST INC CAD (01/25/2024 6:34 PM EDT) Anatomical Region Laterality Modality Radiographic Delma ging 12/31/2022 11:4 7 AM EST Narrative 01/27/2024 8:21 AM EDT This is a summary report. The complete report is available in the patient's medical record. If you cannot access the medical record, please contact the sending organization for a detailed fax or copy. Study: SCREENING MAMMOGRAPHY BI 2-VIEW BREAST INC CAD Technique: Bilateral full-field digital screening mammography is obtained and read in conjunction with computer aided detection. Tomosynthesis as well as 2D C-View imaging were obtained. Comparison: January 21, 2018 Breast composition: There are scattered areas of fibroglandular density. Bilateral breasts: No significant masses, suspicious calcifications or other abnormalities are seen in either breast. IMPRESSION: Impression: Bilateral breasts: Negative, no specific mammographic evidence of malignancy. Normal interval follow-up is recommended in 12 months. BI-RADS: Category 1: Negative Procedure Note Ozzie Kent MD - 06/26/2024 This is a summary report. The complete report is available in thepatient's medical record. If you cannot access the medical record, pleasecontact the sending organization for a detailed fax or copy. Study: SCREENING MAMMOGRAPHY BI 2-VIEW BREAST INC CAD Technique: Bilateral full-field digital screening mammography is obtainedand read in conjunction with computer aided detection. Tomosynthesis aswell as 2D C-View imaging were obtained. Comparison: January 21, 2018 Breast composition: There are scattered areas of fibroglandular density. Bilateral breasts: No significant masses, suspicious calcifications orother abnormalities are seen in either breast. IMPRESSION: Impression: Bilateral breasts: Negative, no specific mammographic evidence ofmalignancy. Normal interval follow-up is recommended in 12 months. BI-RADS: Category 1: Negative us Johnny Hernadez MD IMG XR PROCEDURES Final R esult * External Colonoscopy Report (03/26/2023 7:22 AM EDT) Anatomical Region Laterality Modality Endoscopy us Historical Provider GI~PROCEDURE ORDERABLES F inal Result * Pap smear (01/02/2021) 01/02/2021 Narrative HISTORICAL TESTING LAB RESULTING AGENCY - 01/09/2021 11:30 AM EST [id number] THINPREP PAP, IMAGED: ATYPICAL SQUAMOUS CELLS OF UNDETERMINED SIGNIFICANCE (ASCUS) . GAY SMITH(ASCP) (CASE SCREENED 01 07 2021) XOCHILT LOMBARDI M.D. , PATHOLOGIST (CASE ELECTRONICALLY SIGNED 01 08 2021) RESULT OF APTIMA HIGH RISK HPV ASSAY: HIGH RISK HPV: NEGATIVE (SEROTYPES 16,18,31,33,35,39,45,51,52,56,58,59,66,68) COMPLETED ON 2021-01-06 ADEQUACY: SATISFACTORY ENDOCERVICAL/TRANSFORMATION ZONE COMPONENT PRESENT. SOURCE: THINPREP PAP HPV ANY DX: REFLEX 16 AND 18, CERVICAL, IMAGED CLINICAL INFORMATION: HPV ANY DIAGNOSIS. HORMONES, PAP HX NEG, LMP 12/23/20 [Z12.4, Z01.419] us Dayanna RUBIN LAB CYTOLOGY ORDERABLES Final Result HISTORICAL TESTING LAB RESULTING AGENCY from Last 3 Months or Most Recently Relevant to Health Maintenance Insurance MEDICARE [facility] [place] [employer] Care Teams Accounting Instructor Relationship Specialty Start Date End Date Kerry Varela MD [address] [facility] ([place], [place] [phone] PCP - General Internal Medicine 06/01/25
--- OUTSIDE RECORDS SUMMARY | 2025-10-29 13:55 | XMS_ITS ---
Author Name [facility] Organization Unknown Care Team Organization Name Specialty Phone Email Start Date End Da [facility] 06/27/2025
== END 2025-10-29 11:01 | disposition home or self-care (01) ==
LOC: HO.XRAY 11:00
PROVIDERS: Visit Provider Physical Medicine & Rehabilitation
DX: M75.42 Impingement syndrome of left shoulder (principal); V89.2XXA Person injured in unspecified motor-vehicle accident, traffic, initial encounter
CPT/HCPCS: 73030

== ENCOUNTER → 2025-10-29 11:05 | Outpatient (BNV) | payer OTHER, MEDICARE, MEDICAID, SELFPAY | PROVIDERS: Visit Provider Radiology Diagnostic Ultrasound | DX: M75.42 Impingement syndrome of left shoulder (principal) | CPT/HCPCS: 73030 ==